=== PATIENT | female | born 1960 | race African-American/Black ===

== ENCOUNTER 2017-11-13 00:53 | Emergency (ER) | payer SELFPAY ==
[2017-11-13 02:05] LABS: ADD MAN DIFF? NO
[2017-11-13 02:09] LABS: BASO # 0.1 x10^3/uL (0.0-0.2); BASO % 1 % (0-3); EOS # 0.3 x10^3/uL (0.0-0.7); EOS % 3 % (0-3); HEMOGLOBIN 15.5 g/dL (12.0-15.5); LYMPH # 3.3 x10^3/uL (1.0-4.8); LYMPH % 31 % (24-48); MEAN CORPUSCULAR HEMOGLOBIN 35 pg (25-35); MEAN CORPUSCULAR HGB CONC 35 g/dL (31-37); MEAN CORPUSCULAR VOLUME 98 fL (79-100); MONO # 0.8 x10^3/uL (0.0-1.1); MONO % 8 % (0-9); NEUT # 5.9 x10^3uL (1.8-7.7); NEUT % 57 % (31-73); PLATELET COUNT 244 x10^3/uL (140-400); RED BLOOD COUNT 4.48 x10^6/uL (3.50-5.40); RED CELL DISTRIBUTION WIDTH 13.1 % (11.5-14.5); WHITE BLOOD COUNT 10.4 x10^3/uL (4.0-11.0)
[2017-11-13] MEDS: fentaNYL PF VIAL 100 MCG/2 ML VIAL IV (02:10)
[2017-11-13] MEDS: ONDANSETRON ODT 4 MG TAB.RAPDIS. PO (02:10)
[2017-11-13] MEDS: LABETALOL 20 MG/4 ML DISP.SYRIN. IVP ×2 (02:15→02:33)
[2017-11-13 02:16] LABS: ANION GAP 11 (6-14); BLOOD UREA NITROGEN 15 mg/dL (7-20); BUN/CREATININE RATIO 19 (6-20); CARBON DIOXIDE 25 mmol/L (21-32); CHLORIDE 102 mmol/L (98-107); CREATININE 0.8 mg/dL (0.6-1.0); GFR 73.9; GLUCOSE 112 mg/dL (70-99); POTASSIUM 3.3 mmol/L (3.5-5.1); SODIUM 138 mmol/L (136-145)
[2017-11-13 02:22] LABS: ALBUMIN 3.8 g/dL (3.4-5.0); ALK PHOS 100 U/L (46-116); ALT (SGPT) 27 U/L (14-59); AST (SGOT) 23 U/L (15-37); TOTAL BILIRUBIN 0.2 mg/dL (0.2-1.0); TOTAL PROTEIN 7.5 g/dL (6.4-8.2)
[2017-11-13 02:24] LABS: TROPONINI < 0.017 ng/mL (0.000-0.055)
[2017-11-13 02:50] LABS: BILIRUBIN,URINE NEGATIVE (NEG); CLARITY,URINE CLEAR; COLOR,URINE YELLOW; GLUCOSE,URINE NEGATIVE (NEG); NITRITE,URINE NEGATIVE (NEG); PROTEIN,URINE NEGATIVE (NEG-TRACE); UROBILINOGEN,URINE 0.2 mg/dL (0.2 mg/dL)
[2017-11-13 03:31] LABS: BACTERIA,URINE MANY /HPF (0-FEW); RBC,URINE 0 /HPF (0-2); SQUAMOUS EPITHELIAL CELL,UR FEW /LPF
== END 2017-11-13 04:58 | disposition home or self-care (01) ==
LOC: ER 00:53
DX: I10 Essential (primary) hypertension (principal); R51 Headache; R94.31 Abnormal electrocardiogram [ECG] [EKG]; H57.11 Ocular pain, right eye; H53.8 Other visual disturbances; Z88.1 Allergy status to other antibiotic agents
CPT/HCPCS: 36415; 70450; 71045; 80053; 81001; 84484; 85025; 87086; 93005; 96374; 96375; 99285-25; J3010; J3490; Q0162

== ENCOUNTER 2017-11-27 21:51 | Emergency (ER) | payer SELFPAY ==
[2017-11-27] MEDS: cloNIDine HCL 0.1 MG TABLET PO (22:46)
== END 2017-11-27 23:58 | disposition home or self-care (01) ==
LOC: ER 21:51
DX: I10 Essential (primary) hypertension (principal); Z88.1 Allergy status to other antibiotic agents
CPT/HCPCS: 99283

== ENCOUNTER → 2020-09-23 | Outpatient (CLI) | payer OTHER ==
[2017-11-27 23:41] VITALS: BP 164/93
[~2020-09-23] MED LIST: CLON0.1T PO; CLON0.2T PO
--- NOTE | 2020-09-23 16:54 | RAD ---
EXAM: Abdomen sonogram. HISTORY: Pain. TECHNIQUE: Sonographic imaging of the abdomen was performed. COMPARISON: None. FINDINGS: The liver is normal in size. There is hepatic steatosis. No focal hepatic lesion is seen. T he gallbladder is unremarkable. The common bile duct is normal in caliber. The kidneys are normal in size. There is no hydronephrosis. The pancreas, spleen, aorta and inferior cava are unremarkable.. IMPRESSION: 1. Hepatic steatosis. 2. No acute sonographic finding. Electronically signed by: Mabel Henley MD (09/23/2020 4:51 PM) [facility]
== END ==
LOC: US 10:49
PROVIDERS: ATTEND Internal Medicine
DX: K76.0 Fatty (change of) liver, not elsewhere classified (principal); R10.9 Unspecified abdominal pain
CPT/HCPCS: 76700